=== PATIENT | female | born 1965 | race Caucasian/White ===

== ENCOUNTER 2019-12-08 21:59 | Emergency (ER) | payer BC ==
[2019-12-08] MEDS: Sodium Chloride 0.9% 1,000 ML IV ONE (22:39)
--- NOTE | 2019-12-08 22:39 | EDM.PDOC ---
<FavioClifford christianson W - Last Filed: 12/17/19 15:32> ED HPI GENERAL MEDICAL PROBLEM - General Chief Complaint: General Stated Complaint: ill for a week Time Seen by Provider: 12/08/19 22:16 Source of Information: Reports: Patient History Limitations: Reports: No Limitations - History of Present Illness INITIAL COMMENTS - FREE TEXT/NARRATIVE: Pt. presents to ER with complaints of fever, chills, severe diarrhea, fatigue, abdominal cramps, headache, body aches for the past week. She denies any sore throat. No cough/congestion. She was [place] for [place] [facility] [place] Pt. denies any urinary symptoms. Denies any skin rashes. Pt. states that the diarrhea is frequent and perfuse. She has lost 7 pounds since she got sick. She denies any recent hospitalization. She denies any recent antibiotic use. She was on a course of antibiotics, but it was in October and she had no issues when she was on/immediately after the use of the antibiotic (cli ndamycin). Pt. has a history of meningitis when she was in college, but states that this feels nothing like that. She denies any nuchal rigidity, neck stiffness, or other signs of meningitis. Pt. denies any ill contacts. No skin rashes. Denies any chest pain, dental pain, sore throat, rash, ear pain, congestion, or shortness of breath. Onset Date: 12/01/19 Location: Reports: Abdomen, Generalized Associated Symptoms: Reports: Fever/Chills, Headaches, Malaise. 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 Denies: Abdominal Pain, Hematemesis, Hematochezia, Melena, Vomiting : Reports: No Symptoms. Denies: Dysuria Musculoskeletal: Reports: No Symptoms Skin: Reports: No Symptoms Neurological: Reports: No Symptoms Psychiatric: Reports: No Symptoms Hematologic/Lymphatic: Reports: No Symptoms Immunologic: Reports: No Symptoms ED EXAM, GENERAL - Physical Exam Exam: See Below Exam Limited By: No Limitations General Appearance: Alert, WD/WN, No Apparent Distress Eye Exam: Bilateral Eye: EOMI, PERRL Head: Atraumatic, Normocephalic Neck: Normal Inspection, Supple, Non-Tender, Full Range of Motion. No: Tender Midline Respiratory/Chest: No Respiratory Distress, Lungs Clear, Normal Breath Sounds, No Accessory Muscle Use, Chest Non-Tender Cardiovascular: Normal Peripheral Pulses, Regular Rate, Rhythm, No Edema, No JVD, JVD Peripheral Pulses: 4+: Radial (L) GI/Abdominal: Soft, Non-Tender, No Distention, Other (diffusely tender throughout, does not localize.) (Female) Exam: Deferred Rectal (Female) Exam: Deferred Back Exam: Normal Inspection, Full Range of Motion Extremities: Normal Inspection, Normal Range of Motion, Non-Tender, No Pedal Edema, Normal Capillary Refill Neurological: Alert, Oriented, CN II-XII Intact, Normal Cognition, Normal Gait, Normal Reflexes, No Motor/Sensory Deficits Psychiatric: Normal Affect, Normal Mood Skin Exam: Warm, Dry, Intact, Normal Color, No Rash Lymphatic: No Adenopathy Departure - Departure Time of Disposition: 01:00 Disposition: Home, Self-Care 01 Clinical Impression: Gastroenteritis - Discharge Information Prescriptions: Vancomycin [Vancomycin Cap] 125 mg PO QID #40 cap Instructions: Viral Gastroenteritis, Adult, [id number], Urinary Tract Infection, Adult, Sulfamethoxazole; Trimethoprim, SMX-TMP tablets, Probiotics Referrals: Claudia Sequeira DO [Primary Care Provider] - Forms: ED Department Discharge Additional Instructions: Home to rest. Drink plenty of fluids. Off of school/work until you haven't had a fever for at least 24 hours. Bring stool sample to hospital when available. Make sure to refrigerate the sample within 30 min. of obtaining. We will let you know the results when they come back from our outside lab. Immodium (loperamide) 2 tablet for the first dose, then 1 tab every 4-6 hours for continued diarrhea. Max dose 8 tabs per day. Bactrim DS 1 twice daily for 5 days. Recheck in clinic in 7-10 days, sooner if not gradually improving. Sepsis Event Note (ED) - Evaluation Sepsis Screening Result: No Definite Risk - Problem List Review Problem List Initiated/Reviewed/Updated: Yes <Parish Dupree - Last Filed: 12/18/19 17:36> Course - Vital Signs Last Recorded V/S: Last Vital Signs Temp 98.5 F 12/08/19 23:26 Pulse 95 12/08/19 23:26 Resp 16 12/08/19 23:26 BP 97/55 L 12/08/19 23:26 Pulse Ox 98 12/08/19 23:26 - Orders/Labs/Meds Labs: Laboratory Tests 12/08/19 12/08/19 12/08/19 Range/Units 22:25 22:31 22:31 WBC 6.6 (4.0-10.0) x10^3/uL RBC 3.97 L (4.00-5.50) x10^6/uL Hgb 12.2 (12.0-16.0) g/dL Hct 36.1 (33.0-47.0) % MCV 90.9 (78.0-93.0) fL MCH 30.7 (26.0-32.0) pg MCHC 33.8 (32.0-36.0) g/dL RDW Coeff of Derick 11.6 (10.0-15.0) % Plt Count 277 (130-400) x10^3/uL Add Manual Diff Yes Neutrophils % (Manual) 21 L (50-80) % Band Neutrophils % 13 H (0-6) % Lymphocytes % (Manual) 44 (25-50) % Monocytes % (Manual) 15 H (2-11) % Eosinophils % (Manual) 6 H (0-4) % Basophils % (Manual) 1 (0-1) % Platelet Estimate Adequate PT 9.6 (9.5-12.3) SEC INR 0.9 L (2.0-3.5) Sodium (136-145) mmol/L Potassium (3.5-5.1) mmol/L Chloride (98-107) mmol/L Carbon Dioxide (21-32) mmol/L Anion Gap (10-20) mmol/L BUN (7-18) mg/dL Creatinine (0.55-1.02) mg/dL Est Cr Clr Drug Dosing Estimated GFR (MDRD) Glucose (74-106) mg/dL Lactic Acid (0.4-2.0) mmol/L Calcium (8.5-10.1) mg/dL Corrected Calcium (8.5-10.1) mg/dL Total Bilirubin (0.2-1.0) mg/dL AST (15-37) U/L ALT (14-59) U/L Alkaline Phosphatase (46-116) U/L C-Reactive Protein (<=0.9) mg/dL Total Protein (6.4-8.2) g/dL Albumin (3.4-5.0) g/dL Globulin Albumin/Globulin Ratio Urine Color (YELLOW) Urine Appearance (CLEAR) Urine pH (5.0-8.0) Ur Specific [place] Urine Protein (NEGATIVE) mg/dL Urine Glucose (UA) (NEGATIVE) mg/dL Urine Ketones (NEGATIVE) mg/dL Urine Occult Blood (NEGATIVE) Urine Nitrite (NEGATIVE) Urine Bilirubin (NEGATIVE) Urine Urobilinogen (0.2) EU/dL Ur Leukocyte Esterase (NEGATIVE) Urine RBC (NOT SEEN) /HPF Urine WBC (NOT SEEN) /HPF Ur Squamous Epith Cells (NEGATIVE) /HPF Amorphous Sediment Urine Bacteria (NEGATIVE) /HPF Urine Mucus (NEGATIVE) /LPF COVID-19 (DEVYN) Negative (NEGATIVE) 12/08/19 12/08/19 12/08/19 Range/Units 22:31 22:45 23:20 WBC (4.0-10.0) x10^3/uL RBC (4.00-5.50) x10^6/uL Hgb (12.0-16.0) g/dL Hct (33.0-47.0) % MCV (78.0-93.0) fL MCH (26.0-32.0) pg MCHC (32.0-36.0) g/dL RDW Coeff of Derick (10.0-15.0) % Plt Count (130-400) x10^3/uL Add Manual Diff Neutrophils % (Manual) (50-80) % Band Neutrophils % (0-6) % Lymphocytes % (Manual) (25-50) % Monocytes % (Manual) (2-11) % Eosinophils % (Manual) (0-4) % Basophils % (Manual) (0-1) % Platelet Estimate PT (9.5-12.3) SEC INR (2.0-3.5) Sodium 141 (136-145) mmol/L Potassium 3.4 L (3.5-5.1) mmol/L Chloride 102 (98-107) mmol/L Carbon Dioxide 30 (21-32) mmol/L Anion Gap 12.4 (10-20) mmol/L BUN 7 (7-18) mg/dL Creatinine 0.8 (0.55-1.02) mg/dL Est Cr Clr Drug Dosing TNP Estimated GFR (MDRD) > 60 Glucose 88 (74-106) mg/dL Lactic Acid 0.5 (0.4-2.0) mmol/L Calcium 8.3 L (8.5-10.1) mg/dL Corrected Calcium 9.26 (8.5-10.1) mg/dL Total Bilirubin 0.2 (0.2-1.0) mg/dL AST 12 L (15-37) U/L ALT 19 (14-59) U/L Alkaline Phosphatase 66 (46-116) U/L C-Reactive Protein 9.8 H (<=0.9) mg/dL Total Protein 6.4 (6.4-8.2) g/dL Albumin 2.8 L (3.4-5.0) g/dL Globulin 3.6 Albumin/Globulin Ratio 0.78 Urine Color Yellow (YELLOW) Urine Appearance Cloudy H (CLEAR) Urine pH 7.0 (5.0-8.0) Ur Specific [place] 1.020 Urine Protein Negative (NEGATIVE) mg/dL Urine Glucose (UA) Negative (NEGATIVE) mg/dL Urine Ketones Trace H (NEGATIVE) mg/dL Urine Occult Blood Trace-intact H (NEGATIVE) Urine Nitrite Negative (NEGATIVE) Urine Bilirubin Negative (NEGATIVE) Urine Urobilinogen 0.2 (0.2) EU/dL Ur Leukocyte Esterase Small H (NEGATIVE) Urine RBC 5-10 H (NOT SEEN) /HPF Urine WBC 5-10 H (NOT SEEN) /HPF Ur Squamous Epith Cells Many H (NEGATIVE) /HPF Amorphous Sediment Few Urine Bacteria Moderate H (NEGATIVE) /HPF Urine Mucus Moderate H (NEGATIVE) /LPF COVID-19 (DEVYN) (NEGATIVE) Meds: Medications Discontinued Medications Generic Name Dose Route Start Last Admin Trade Name Freq PRN Reason Stop Dose Admin Ceftriaxone Sodium 1 gm 12/08/19 23:54 12/09/19 00:13 Rocephin IVPUSH 12/08/19 23:55 1 gm STAT ONE Administration Sodium Chloride 1,000 mls @ 1,000 mls/hr 12/08/19 22:31 12/08/19 22:39 Normal Saline IV 12/08/19 23:30 1,000 mls/hr .BOLUS ONE Administration Lactated Ringer's 1,000 mls @ 500 mls/hr 12/08/19 23:16 12/08/19 23:25 Ringers, Lactated IV 12/09/19 01:15 500 mls/hr ONETIME ONE Administration Ketorolac Tromethamine 15 mg 12/09/19 00:05 12/09/19 00:15 Toradol IVPUSH 12/09/19 00:06 15 mg ONETIME ONE Administration Loperamide HCl 4 mg 12/09/19 00:05 12/09/19 00:17 Imodium PO 12/09/19 00:06 4 mg ONETIME ONE Administration Sodium Chloride 10 ml 12/08/19 22:25 12/09/19 00:02 Saline Flush FLUSH 10 ml ASDIRECTED PRN Administration Keep Vein Open - Re-Assessments/Exams Free Text/Narrative Re-Assessment/Exam: 12/10/19 22:11 Follow up on the patients cultures. Her urine grew out E Coli. Resistant to Bactrim which she was placed on. Cephalexin 500mg po qid x 5 days. The patient was contacted and updated by nursing staff. 12/11/19 14:12 The patient will cultures returned positive for C. difficile toxin and antigen. October 22 of this year she was put on clindamycin for a dental abscess and she has been having diarrhea since that time. She has not had C. difficile in the past. We will place her on vancomycin 125 mg p.o. 4 times daily for the next 10 days. She needs to follow-up in the clinic to ensure eradication of this disease. We talked about the spread of the disease and the importance of appropriate handwashing with soap and water. I talked with this patient directly on the phone. She has been tolerating oral fluids and eating well at home. Her weakness and generalized malaise and fatigue is improved. She has not had any fever or chills. 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 12/11/19 14:13
[2019-12-08 23:13] LABS: CHLORIDE,CL 102 mmol/L (98-107); SODIUM,NA 141 mmol/L (136-145)
[2019-12-08 23:15] LABS: ANION GAP 12.4 mmol/L (10-20)
[2019-12-08] MEDS: Lactated Ringers 1,000 ML IV ONE (23:25)
[2019-12-08 23:26] VITALS: BP 97/55; PULSE 95
[2019-12-09] MEDS: Sodium Chloride 0.9% 10 ML Syringe FLUSH PRN (00:02)
[2019-12-09] MEDS: cefTRIAXone 1 GM Vial IVPUSH ONE (00:13)
[2019-12-09] MEDS: Ketorolac 15 MG/ML SDV IVPUSH ONE (00:15)
[2019-12-09] MEDS: Loperamide 2 MG Cap PO ONE (00:17)
--- NOTE | 2019-12-09 07:39 | CR ---
[id number] RAD/RAD Chest PA And Lateral EXAM: RAD Chest PA And Lateral INDICATION: SYNCOPE, BRADYCARDIA. COMPARISON: None. DISCUSSION: Cardiomediastinal silhouette is normal in size and contour. No infiltrate, effusion, pneumothorax, or edema. IMPRESSION: No acute cardiopulmonary abnormality. Raymond Salas DO 12/09/19 0739 Thank you for allowing us to participate in the care of your patient.
== END 2019-12-09 00:39 | disposition home or self-care (01) ==
LOC: VM.ED 21:59
DX: K52.9 Noninfective gastroenteritis and colitis, unspecified (principal); F32.9 Major depressive disorder, single episode, unspecified; Z87.891 Personal history of nicotine dependence; Z79.899 Other long term (current) drug therapy; Z20.828 Contact with and (suspected) exposure to other viral communicable diseases
CPT/HCPCS: 71046; 80053; 81001; 83605; 85025; 85610; 86140; 87040; 87086; 87088; 87186; 87635; 87804; 96361; 96374; 96375; 99284; A9270; J0696; J1885; J7030; J7120; 36415; U0002